=== PATIENT | male | born 1950 | race Two or more races ===

== ENCOUNTER 2023-08-03 23:33 | Emergency (ER) | payer OTHER ==
[~2023-08-03] VITALS: Ht 177.8 cm; Wt 83.9 kg
[2023-08-04 02:02] LABS: ALBUMIN 3.6 gm/dL (3.4-5.0); BILIRUBIN TOTAL 0.36 mg/dL (0.2-8.0); BILIRUBIN,CONJUGATED 0.17 mg/dL (0.0-0.2); BILIRUBIN,UNCONJUGATED 0.19 mg/dL (0.0-0.6); TOTAL PROTEIN 6.7 gm/dL (6.4-8.2)
[2023-08-04 02:04] LABS: HEMATOCRIT 39.3 % (48.0-68.0); HEMOGLOBIN 13.5 g/dL (16.5-21.5); MEAN CELL VOLUME 92.5 fL (95.0-125.0); MEAN CORPUSCULAR HEMOGLOBIN 31.7 pg (30.0-42.0); MEAN CORPUSCULAR HGB CONC 34.3 g/dl (32.0-36.0); PLATELET COUNT 178 K/uL (150-450); RED BLOOD COUNT 4.25 M/uL (4.00-6.00)
[2023-08-04] MEDS ORDERED: ONDANSETRON ODT4 MG PO (05:53)
[2023-08-04] MEDS ORDERED: PEPCID40 MG PO (05:53)
[2023-08-04] MEDS ORDERED: CEPHALEXIN500 MG PO (05:56)
== END 2023-08-04 06:06 | disposition home or self-care (01) ==
LOC: ER 23:33 → EDBD 08-04 01:43 → ER 08-04 06:06
PROVIDERS: General Practice
DX: S00.93XA Contusion of unspecified part of head, initial encounter (principal); W18.39XA Other fall on same level, initial encounter; Y93.89 Activity, other specified; Y92.89 Other specified places as the place of occurrence of the external cause; Y99.9 Unspecified external cause status; F10.929 Alcohol use, unspecified with intoxication, unspecified